=== PATIENT | male | born 1970 | race Caucasian/White ===

== ENCOUNTER 2021-01-13 19:15 | Inpatient (IN) ==
[2021-01-13] MEDS ORDERED: Remdesivir 100 mg Vial 200 MG in NS 0.9% 250 ml 210 ML IV ONE (21:18)
[2021-01-13] MEDS ORDERED: Albuterol HFA INHALER 8 gm MDI INH PRN (21:20)
[2021-01-13] MEDS ORDERED: Ondansetron 4 mg VIAL 2 MG/ML 2 ml VIAL IV PRN (21:25)
[2021-01-13] MEDS ORDERED: Enoxaparin 40 MG/0.4 ML SYR SUBCUT ONE (21:43)
[2021-01-13 22:05] LABS: PCO2 Arterial 41 mmHg (35-45); PO2 Arterial 71 mmHg (80-100)
[2021-01-13 22:18] LABS: ABS Lymphocytes 0.4 10^3/ul (1.0-4.8); ABS Monocytes 0.1 10^3/ul (0-0.8); Hematocrit 45 % (42-52); Hemoglobin 15.3 g/dL (14.0-18.0); Lymphocyte % 8.6 %; Mean Corpuscular HGB Conc 34 g/dL (31-36); Mean Corpuscular Hemoglobin 29 pg (27-31); Mean Corpuscular Volume 85 fL (80-94); Mean Platelet Volume 8.9 fL (7.4-10.4); Platelet Count 140 10^3/uL (150-450); Red Cell Distribution Width 14 % (10-15); White Blood Count 4.5 10^3/uL (3.5-10.8)
[2021-01-13 22:25] LABS: Albumin 3.7 g/dL (3.2-5.2); Calcium 8.1 mg/dL (8.6-10.3); Magnesium 2.1 mg/dL (1.9-2.7); Total Bilirubin 0.9 mg/dL (0.2-1.0)
[2021-01-13 22:31] LABS: CRP High Sensitivity 76.07 mg/L (<2.00); EGFR African American 93.9 (>60); EGFR Non-African American 77.6 (>60); Globulin 3.6 g/dL (2-4); Total Protein 7.3 g/dL (6.4-8.9)
[2021-01-13 22:41] LABS: Troponin I 0.01 ng/mL (<0.03)
[2021-01-13 22:58] LABS: Ferritin 469.7 ng/mL (24-336)
[2021-01-13 23:24] LABS: INR 1.23 (0.86-1.15)
[2021-01-13] MEDS: Baricitinib 2 MG TAB (NF) PO SCH (23:26)
[2021-01-14] MEDS ORDERED: Dextrose 50% Syringe 50 ml 25 GM/50 ML SYRINGE IV PUSH PRN (02:21)
[2021-01-14 04:46] LABS: ABS Lymphocytes 0.6 10^3/ul (1.0-4.8); ABS Monocytes 0.1 10^3/ul (0-0.8); ABS Neutrophils 2.2 10^3/ul (1.5-7.7); Hematocrit 43 % (42-52); Hemoglobin 14.8 g/dL (14.0-18.0); Lymphocyte % 19.6 %; Mean Corpuscular HGB Conc 34 g/dL (31-36); Mean Corpuscular Hemoglobin 29 pg (27-31); Mean Corpuscular Volume 85 fL (80-94); Mean Platelet Volume 8.7 fL (7.4-10.4); Nucleated Red Blood Cells % 0.3; Platelet Count 149 10^3/uL (150-450); Red Blood Count 5.09 10^6 /uL (4.18-5.48); Red Cell Distribution Width 14 % (10-15); White Blood Count 2.8 10^3/uL (3.5-10.8)
[2021-01-14 04:48] LABS: INR 1.21 (0.86-1.15)
[2021-01-14 05:03] LABS: Albumin 3.4 g/dL (3.2-5.2); Calcium 8.1 mg/dL (8.6-10.3); EGFR African American 124.3 (>60); EGFR Non-African American 102.7 (>60); Globulin 3.4 g/dL (2-4); Potassium 4.3 mmol/L (3.5-5.0); Total Bilirubin 0.7 mg/dL (0.2-1.0); Total Protein 6.8 g/dL (6.4-8.9)
[2021-01-14] MEDS: methylPREDNISolone SOD 40 mg/ml 1 ml VIAL IV SCH ×2 (07:33→20:40)
[2021-01-14] MEDS: Acetylcysteine 600mgCAP(RENAL) PO SCH ×2 (11:58→20:40)
[2021-01-14] MEDS ORDERED: Albuterol HFA INHALER 8 gm MDI INH PRN (12:07)
[2021-01-14] MEDS: Baricitinib 2 MG TAB (NF) PO SCH (20:40)
[2021-01-14] MEDS: Enoxaparin 40 MG/0.4 ML SYR SUBCUT SCH (20:40)
[2021-01-14] MEDS: Remdesivir 100 mg Q24H MAINTENANCE DOSING IV SCH (20:41)
[2021-01-15 05:21] LABS: ABS Lymphocytes 0.8 10^3/ul (1.0-4.8); ABS Monocytes 0.3 10^3/ul (0-0.8); ABS Neutrophils 6.8 10^3/ul (1.5-7.7); Hematocrit 45 % (42-52); Hemoglobin 15.3 g/dL (14.0-18.0); Lymphocyte % 9.8 %; Mean Corpuscular HGB Conc 34 g/dL (31-36); Mean Corpuscular Hemoglobin 29 pg (27-31); Mean Corpuscular Volume 85 fL (80-94); Mean Platelet Volume 8.8 fL (7.4-10.4); Nucleated Red Blood Cells % 0.1; Platelet Count 190 10^3/uL (150-450); Red Blood Count 5.32 10^6 /uL (4.18-5.48); Red Cell Distribution Width 14 % (10-15); White Blood Count 7.9 10^3/uL (3.5-10.8)
[2021-01-15 05:31] LABS: Albumin 3.3 g/dL (3.2-5.2); Albumin/Globulin Ratio 0.9 (1-3); Calcium 8.6 mg/dL (8.6-10.3); EGFR African American 142.7 (>60); EGFR Non-African American 117.9 (>60); Globulin 3.5 g/dL (2-4); Potassium 4.5 mmol/L (3.5-5.0); Total Bilirubin 0.6 mg/dL (0.2-1.0); Total Protein 6.8 g/dL (6.4-8.9)
[2021-01-15] MEDS: methylPREDNISolone SOD 40 mg/ml 1 ml VIAL IV SCH (08:53)
[2021-01-15] MEDS: Acetylcysteine 600mgCAP(RENAL) PO SCH ×2 (08:57→20:02)
[2021-01-15 10:38] LABS: Magnesium 2.3 mg/dL (1.9-2.7); Phosphorus 3.5 mg/dL (2.5-5.0)
[2021-01-15] MEDS ORDERED: Albuterol HFA INHALER 8 gm MDI INH PRN (10:45)
[2021-01-15] MEDS: Benzocaine/Menthol LOZ MT PRN (17:39)
[2021-01-15] MEDS: Remdesivir 100 mg Q24H MAINTENANCE DOSING IV SCH (20:02)
[2021-01-15] MEDS: Enoxaparin 40 MG/0.4 ML SYR SUBCUT SCH (20:02)
[2021-01-15] MEDS: Baricitinib 2 MG TAB (NF) PO SCH (20:02)
[2021-01-16 05:38] LABS: ABS Lymphocytes 0.9 10^3/ul (1.0-4.8); ABS Monocytes 0.5 10^3/ul (0-0.8); ABS Neutrophils 7.2 10^3/ul (1.5-7.7); Hematocrit 44 % (42-52); Lymphocyte % 10.5 %; Mean Corpuscular HGB Conc 34 g/dL (31-36); Mean Corpuscular Hemoglobin 29 pg (27-31); Mean Corpuscular Volume 85 fL (80-94); Mean Platelet Volume 8.6 fL (7.4-10.4); Nucleated Red Blood Cells % 0.1; Platelet Count 204 10^3/uL (150-450); Red Blood Count 5.13 10^6 /uL (4.18-5.48); Red Cell Distribution Width 14 % (10-15); White Blood Count 8.6 10^3/uL (3.5-10.8)
[2021-01-16 05:44] LABS: INR 1.15 (0.86-1.15)
[2021-01-16 05:55] LABS: Albumin 3.2 g/dL (3.2-5.2); Calcium 8.2 mg/dL (8.6-10.3); EGFR Non-African American 112.4 (>60); Globulin 3.1 g/dL (2-4); Potassium 4.2 mmol/L (3.5-5.0); Total Bilirubin 0.7 mg/dL (0.2-1.0); Total Protein 6.3 g/dL (6.4-8.9)
[2021-01-16] MEDS ORDERED: Dexamethasone IV 4 MG/ML VIAL 1 ml VIAL IV SLOW PU SCH (09:00)
[2021-01-16] MEDS: Acetylcysteine 600mgCAP(RENAL) PO SCH ×2 (09:23→20:28)
[2021-01-16] MEDS ORDERED: methylPREDNISolone SOD 40 mg/ml 1 ml VIAL IV SCH (13:00)
[2021-01-16] MEDS: methylPREDNISolone SOD 40 mg/ml 1 ml VIAL IV SCH (16:50)
[2021-01-16] MEDS: Baricitinib 2 MG TAB (NF) PO SCH (20:28)
[2021-01-16] MEDS: Enoxaparin 40 MG/0.4 ML SYR SUBCUT SCH (20:33)
[2021-01-16] MEDS: Remdesivir 100 mg Q24H MAINTENANCE DOSING IV SCH (20:45)
[2021-01-17] MEDS: methylPREDNISolone SOD 40 mg/ml 1 ml VIAL IV SCH ×4 (00:47→23:04)
[2021-01-17 05:10] LABS: Albumin 3.4 g/dL (3.2-5.2); Calcium 8.6 mg/dL (8.6-10.3); EGFR Non-African American 130.6 (>60); Globulin 3.4 g/dL (2-4); Potassium 4.4 mmol/L (3.5-5.0); Total Bilirubin 0.8 mg/dL (0.2-1.0); Total Protein 6.8 g/dL (6.4-8.9)
[2021-01-17] MEDS: Acetylcysteine 600mgCAP(RENAL) PO SCH ×2 (08:23→20:16)
[2021-01-17] MEDS: Albuterol HFA INHALER 8 gm MDI INH SCH ×4 (11:37→20:50)
[2021-01-17] MEDS: Benzocaine/Menthol LOZ MT PRN (17:36)
[2021-01-17] MEDS: Baricitinib 2 MG TAB (NF) PO SCH (20:16)
[2021-01-17] MEDS: Enoxaparin 40 MG/0.4 ML SYR SUBCUT SCH (20:20)
[2021-01-17] MEDS: Remdesivir 100 mg Q24H MAINTENANCE DOSING IV SCH (21:12)
[2021-01-18] MEDS: Albuterol HFA INHALER 8 gm MDI INH SCH ×2 (04:12→05:45)
[2021-01-18 06:08] LABS: ABS Lymphocytes 0.6 10^3/ul (1.0-4.8); ABS Monocytes 0.5 10^3/ul (0-0.8); ABS Neutrophils 10.7 10^3/ul (1.5-7.7); Hematocrit 46 % (42-52); Hemoglobin 15.8 g/dL (14.0-18.0); Mean Corpuscular HGB Conc 35 g/dL (31-36); Mean Corpuscular Hemoglobin 29 pg (27-31); Mean Corpuscular Volume 85 fL (80-94); Mean Platelet Volume 8.8 fL (7.4-10.4); Platelet Count 235 10^3/uL (150-450); Red Blood Count 5.41 10^6 /uL (4.18-5.48); Red Cell Distribution Width 14 % (10-15); White Blood Count 11.8 10^3/uL (3.5-10.8)
[2021-01-18 06:25] LABS: Albumin 3.4 g/dL (3.2-5.2); Albumin/Globulin Ratio 1.1 (1-3); Calcium 8.8 mg/dL (8.6-10.3); EGFR Non-African American 112.4 (>60); Globulin 3.2 g/dL (2-4); Potassium 4.7 mmol/L (3.5-5.0); Total Bilirubin 0.8 mg/dL (0.2-1.0); Total Protein 6.6 g/dL (6.4-8.9)
[2021-01-18] MEDS: Acetylcysteine 600mgCAP(RENAL) PO SCH ×2 (08:30→22:31)
[2021-01-18] MEDS: methylPREDNISolone SOD 40 mg/ml 1 ml VIAL IV SCH ×2 (08:30→16:27)
[2021-01-18] MEDS ORDERED: Albuterol HFA INHALER 8 gm MDI INH PRN (17:21)
[2021-01-18] MEDS: Baricitinib 2 MG TAB (NF) PO SCH (22:31)
[2021-01-18] MEDS: Enoxaparin 40 MG/0.4 ML SYR SUBCUT SCH (22:31)
[2021-01-19] MEDS: methylPREDNISolone SOD 40 mg/ml 1 ml VIAL IV SCH ×2 (00:36→10:07)
[2021-01-19] MEDS: Acetylcysteine 600mgCAP(RENAL) PO SCH ×2 (09:56→23:45)
[2021-01-19] MEDS: Baricitinib 2 MG TAB (NF) PO SCH (23:45)
[2021-01-19] MEDS: Enoxaparin 40 MG/0.4 ML SYR SUBCUT SCH (23:45)
[2021-01-20] MEDS: Acetylcysteine 600mgCAP(RENAL) PO SCH (09:45)
[2021-01-20 10:13] LABS: ABS Eosinophils 0.1 10^3/ul (0-0.6); ABS Lymphocytes 1.9 10^3/ul (1.0-4.8); ABS Monocytes 0.6 10^3/ul (0-0.8); ABS Neutrophils 11.1 10^3/ul (1.5-7.7); Eosinophil % 0.6 %; Hematocrit 49 % (42-52); Hemoglobin 16.5 g/dL (14.0-18.0); Lymphocyte % 13.7 %; Mean Corpuscular HGB Conc 34 g/dL (31-36); Mean Corpuscular Hemoglobin 29 pg (27-31); Mean Corpuscular Volume 85 fL (80-94); Mean Platelet Volume 8.8 fL (7.4-10.4); Nucleated Red Blood Cells % 0.1; Platelet Count 299 10^3/uL (150-450); Red Blood Count 5.72 10^6 /uL (4.18-5.48); Red Cell Distribution Width 14 % (10-15); White Blood Count 13.7 10^3/uL (3.5-10.8)
[2021-01-20 10:34] LABS: Albumin 3.5 g/dL (3.2-5.2); Albumin/Globulin Ratio 1.1 (1-3); EGFR African American 108.5 (>60); EGFR Non-African American 89.7 (>60); Globulin 3.2 g/dL (2-4); Potassium 4.1 mmol/L (3.5-5.0); Total Protein 6.7 g/dL (6.4-8.9)
[2021-01-20 13:06] VITALS: BP 121/88
== END 2021-01-20 15:05 | disposition home or self-care (01) | DRG 137 ==
LOC: ED 19:15 → ICU 21:32 → MED 01-18 10:57
PROVIDERS: ADMIT Internal Medicine; ATTEND Internal Medicine